=== PATIENT | male | born 1970 | race Caucasian/White ===

== ENCOUNTER → 2017-01-26 06:35 | Day surgery (SDC) | payer OTHER ==
[~2017-01-26 06:35] MED LIST: Acetaminophen TAB* 325 MG PO PRN; Buffered Lidocaine 1% SYRIN* 3 ML/SYR SYRINGE INTRADERM ONE; Bupivacaine 0.25% SDV* 30 ML ONE; Dexamethasone IV* 4 MG/ML 1 ML (4 MG) IV SLOW PU ONE; Dexamethasone IV* 4 MG/ML 1 ML (4 MG) ONE; Famotidine IV* 10 MG/ML 2 ML (20 mg) IV ONE; Famotidine IV* 10 MG/ML 2 ML (20 mg) ONE; Ketorolac INJ* 30 MG/ML 1 ML VIAL IV PRN; Lidocaine 2% PF* 5 ML VIAL ONE; Ondansetron INJ* 2 MG/ML VIAL IV PRN; PROCHLORPERAZINE INJ 5 MG/ML 2 ML VIAL IV PRN; Propofol* 10 MG/ML 20 ML BTL IV PUSH ONE
[2017-01-26 08:42] VITALS: BP 116/67
--- NOTE | 2017-01-27 00:57 | OP ---
DATE OF OPERATION: 01/26/17 [facility] DATE OF : 66 SURGEON: Jae Barth MD BATCHING OPERATOR: JON Lowry ANESTHESIOLOGIST: Dr. Rosalba Vidal ANESTHESIA: Local MAC. PRE-OP DIAGNOSIS: Right carpal tunnel syndrome. POST-OP DIAGNOSIS: Right carpal tunnel syndrome. OPERATIVE PROCEDURE: Right open carpal tunnel release. INDICATIONS: Rafael has had progressive right carpal tunnel syndrome now over a couple of years. He has had injections done up in [place]. He was referred to me after failing to provide adequate relief. He has also tried some night bracing. He gets quite a bit of nighttime symptoms. We talked about risks and benefits. ESTIMATED BLOOD LOSS: 5 mL. COMPLICATIONS: None. FINDINGS: As expected. DESCRIPTION OF PROCEDURE: Rafael was seen in the preoperative holding area and the correct side, site, and procedure were identified. He was taken back to the operating room, where he got some anesthesia and then I infiltrated the operative area with 0.25% Marcaine. We then prepped and draped the arm in the usual fashion and a time-out was performed. A standard longitudinal 2 to 3 cm incision was made using the anatomic landmarks for a carpal tunnel release. Dissection was carried down through the skin, subcutaneous tissue, and palmar fascia. The transverse carpal ligament was identified. It was released just off the radial aspect of the hook of the hamate. I used the tenotomy scissors to complete the release distally and proximally. Proximally, I did retract the skin and the subcutaneous tissue superficially and ulnarly to expose the proximal transverse carpal ligament and distal antebrachial fascia, and this was released under direct visualization with the tenotomy scissors. I checked for release proximally and distally and there was absolutely no compression on the nerve. The nerve was intact. The superficial palmar arch was seen. When I was satisfied with the decompression, I went ahead and irrigated the wound and closed the skin with some 4-0 nylon suture. He was then taken to the recovery room in stable condition. The arm was exsanguinated and tourniquet was inflated prior to making a skin incision to 250 mmHg. Tourniquet was deflated after the dressings were applied. The hand pinked up immediately. [id number]/[facility] #: [id number] [facility]
== END | disposition home or self-care (01) ==
LOC: OREAST 06:35
PROVIDERS: ATTEND Orthopaedic Surgery Hand Surgery
DX: G56.01 Carpal tunnel syndrome, right upper limb (principal); Z87.891 Personal history of nicotine dependence; Z87.898 Personal history of other specified conditions; F11.21 Opioid dependence, in remission
CPT/HCPCS: J1100; J2704

== ENCOUNTER 2017-02-12 12:04 | Emergency (ER) | payer OTHER ==
[2017-02-12 14:30] VITALS: BP 133/93
--- NOTE | 2017-02-12 14:52 | UC ---
Hand/Wrist HPI - HPI Summary HPI Summary: Had R carpal tunnel release 01/26/[address] Barth. Saw surgeon for f/u early last week, then 4 days ago develops severe pain in R 5th finger in the middle of the night and has had increasing swelling since then. Saw PCP who rx indomethacin and the med has helped with pain but swelling increases. Pt is concerned about infection. Denies redness, fevers, streaking, or drainage. - History Of Current Complaint Chief Complaint: UCUpperExtremity Stated Complaint: HAND PAIN AND SWOLLEN Time Seen by Provider: 02/12/17 14:34 Hx Obtained From: Patient ?: No Onset/Duration: Gradual Onset, Lasting Days Severity Initially: Moderate Severity Currently: Mild Character Of Pain: Sharp - when it shoots in R 5th finger, not currently, Dull Aggravating Factor(s): Movement Alleviating: Nothing Associated Signs And Symptoms: Positive: Swelling. Negative: Redness, Bruising , Numbness/Tingling - Allergies/Home Medications Allergies/Adverse Reactions: Allergies Allergy/AdvReac Type Severity Reaction Status Date / Time No Known Allergies Allergy Verified 02/12/17 14:30 Home Medications: Home Medications Indomethacin CAP* [Indocin CAP*] 50 mg PO Q8HR 02/12/17 [History Confirmed 02/12] PMH/Surg Hx/FS Hx/Imm Hx Endocrine History Of: Denies: Diabetes, Thyroid Disease Cardiovascular History Of: Denies: Cardiac Disorders, Hypertension Respiratory History Of: Denies: COPD, Asthma GI/ History Of: Denies: Ulcer Psychological History Of: Reports: Anxiety - no med - Surgical History Surgical History: Yes Surgery Procedure, Year, and Place: R carpel tunnel - Family History Known Family History: Negative: Blood Disorder - Social History 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 Alcohol Use: None Substance Use Type: Other Substance Use Comment - Amount & Last Used: ON SUBOXONE for opiate abuse Smoking Status (MU): Heavy Every Day Tobacco Smoker Type: Cigarettes Amount Used/How Often: 1/2 ppd Length of Time of Smoking/Using Tobacco: since age 16 Have You Smoked in the Last Year: Yes When Did the Patient Quit Smoking/Using Tobacco: 3RD WEEK SEP 2015 Household Exposure Type: Cigarettes Review of Systems Constitutional: Negative Skin: Other - healing surgical wound Eyes: Negative ENT: Negative Respiratory: Negative Cardiovascular: Negative Gastrointestinal: Negative Genitourinary: Negative Motor: Negative Neurovascular: Negative Musculoskeletal: Other: - swelling R hand Neurological: Negative Psychological: Negative All Other Systems Reviewed And Are Negative: Yes Physical Exam Triage Information Reviewed: Yes Appearance: Well-Appearing, No Pain Distress, Well-Nourished Vital Signs: Initial Vital Signs Temp 97 F 02/12/17 14:22 Pulse 65 02/12/17 14:22 Resp 14 02/12/17 14:22 BP 133/93 02/12/17 14:22 Pulse Ox 100 02/12/17 14:22 Vital Signs Reviewed: Yes Eye Exam: Normal Eyes: Positive: Conjunctiva Clear ENT Exam: Normal ENT: Positive: Normal ENT inspection, Hearing grossly normal, Pharynx normal, TMs normal Dental Exam: Normal Neck exam: Normal Neck: Positive: Supple, Nontender, No Lymphadenopathy Respiratory Exam: Normal Respiratory: Positive: Chest non-tender, Lungs clear, Normal breath sounds, No respiratory distress, No accessory muscle use Cardiovascular Exam: Normal Cardiovascular: Positive: RRR, No Murmur Musculoskeletal Exam: Other - mild swelling R hand Musculoskeletal: Positive: Strength Limited @ - R hand ice seller, thumb opposition Neurological Exam: Normal Neurological: Positive: Alert Psychological Exam: Normal Skin Exam: Other - healing surgical wound R palm Hand/Wrist Course/Dx - Differential Dx/Diagnosis Provider Diagnoses: R hand swelling secondary to surgery Discharge - Discharge Plan Condition: Stable Disposition: HOME Patient Education Materials: Paresthesia (ED) Referrals: Alli Molina MD [Primary Care Provider] - Jae Barth MD [Medical Doctor] - 2 Days Additional Instructions: As we discussed, I do not see any concerning signs of infection at this time, but your swelling and pain should be evaluated by your surgeon as soon as possible. I believe the pain in your 5th finger is due to the swelling in your hand pushing on that nerve. Keep the hand wrapped and elevated as much as possible between now and your follow-up appointment with the surgeon. You can continue to take the indomethacin as needed for pain.
== END 2017-02-12 14:52 | disposition home or self-care (01) ==
LOC: UCEAST 12:04
DX: G56.00 Carpal tunnel syndrome, unspecified upper limb (principal); R60.0 Localized edema; Z87.891 Personal history of nicotine dependence
CPT/HCPCS: 99211; G0463

== ENCOUNTER 2018-12-28 15:29 | Emergency (ER) | payer OTHER ==
--- OUTSIDE RECORDS SUMMARY | 2018-12-28 15:34 | XMS REPORT | Continuity of Care Document ---
:1970 External Reference #:[id number] Author Name Alli Molina M.D. Address [address] [facility] [address] [place] [address] Care Team Providers Name Role Phone HCP given Primary Care Physician Unavailable Payers Date Identification Numbers Payment Provider Subscriber Expires: 2016 Policy Number: [id number] Medicaid [employer] Name: active medicaid [address] [facility] PayID: [id number] [place] [address] Effective: 2016 Policy Number: [id number] [facility] Rafael Green PayID: [id number] [address] [place] [address] Advance Directives Description No Information Available Problems Date Description Provider Status Onset: 02/03/2015 Opioid dependence Alli Molina M.D. Active Onset: 02/03/2015 Tobacco user Alli Molina M.D. Active Onset: 02/03/2015 Carpal tunnel syndrome Alli Molina M.D. Active Onset: 06/24/2015 Opioid dependence, uncomplicated Alli Molina M.D. 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 He was getting Rx for 3 months and when he no longer got Rxs he started buying it off the street "then everything took off from there". Eventually started using heroin (snorting; never injected) and other Rx pain pills w/o a Rx. His drug of choice was heroin, easily go through 10 bags/day, or Oxycontin 40mg and would easily use 6/day. Was initially on suboxone for ~20 days back in 2009 while he was a resident at [facility] but came off of it b/o he just didn't think he needed it. After leaving [facility] residential facility in 2009 he did ok for a while, then started thinking he could "use safely", started using again but eventually got right back to where he was. He ended up seeking assistance again ~2yrs after leaving [facility], part of a [facility] based work therapy program through [facility] in [place], a residential program for 6 months, then ~6mo after leaving there he started using again. He then sought care at [facility] of his own free will, started October 2014. No current legal issues. (He initially went to [facility] in 2009 b/o a parole violation). Age 1st [place] 15 Years Old # [facility] Lifetime STD's No STD History Allergies, Adverse Reactions, Alerts Description No Known Drug Allergies Medications Medication Date Status Form Strength Qnty SIG Indications Ordering Provider Nicotine 06/18/ Active prn Unknown Inhaler 2017 Melatonin 08/22/ Active Capsules 10mg 1-2 by mouth Unknown 2015 every night to help with sleep Suboxone 11/05/ Active Film 8-2mg 30uni 1 by mouth F11.20 Jesse, 2014 ts every Alli, morning; rx M.D. due 12/31/18 prescriber# [id number] Indomethacin 02/10/ Hx Capsules 25mg 37cap 2 po q6h for M79.641 Jesse , 2016 - s 2 days then 2 Alli, 02/17/ po q8h for 2 M.D. 2017 days then 1 po q8h for 3 days; take w/ food Nicotine 11/08/ Hx Lozenges 4mg 168un use as F17.213 Silcoff, Polacrilex 2015 - its directed; 1 Alli, 06/18/ lozenge q1-2h M.D. 2017 while awake x6wks then q2-4hrs x3wks then q4-8h x3wks then d/c Chantix 07/25/ Hx Tablets 1mg 60tab 1/2 pill once F17.213 Silcoff, 2015 s daily for 3 Alli, 08/22/ then 10/17.D2015 pill twice daily for 4 days then 1 pill twice daily; for smoking cessation Chantix 03/29/ Hx Tablets 1mg 30tab 1/2 pill F17.210 Jesse, 2015 s twice daily Alli, to help with M.D. 2015 quitting smoking Strattera 03/28/ Hx Capsules 40mg 3caps 1 by mouth R41.840 Jesse, 2015 - every morning Alli, for 3 days M.D. 2015 then switch to the 80mg strength Strattera 03/28/ Hx Capsules 80mg 30cap Take One R41.840 Jesse, 2015 s Capsule By Alli, 05/24/ Mouth Every M.D. 2015 Morning (Start After 3 Days On 40MG ) Gabapentin 02/25/ Hx Capsules 300mg 90cap 1 pill R45.4 Jesse, 2015 s tonight then Alli, pill twice M.D. 2015 daily for 1 day then 1 pill 3x/day; for anger/irritab ility Chantix 01/26/ Hx Tablets 1mg 30tab 1/2 pill once F17.210 Silcoff, 2015 - s daily; Alli, 03/29/ increase to M.D. 2015 1/2 pill 2x/day after 3 days if irritability still a problem Zolpidem 11/27/ Hx Tablets 5mg 15tab 1 tablet G47.00 Silcoff, Tartrate 2015 s nightly at Alli, 06/16/ bedtime as .D. 2016 needed for sleep Chantix 08/31/ Hx Tablets 1mg 60tab 1/2 pill once F17.210 Silcoff, 2014 s daily for 3 Alli, 11/27/ days then 1/2 M.D. 2016 pill twice daily for 4 days then 1 pill twice daily Wrist 02/03/ Hx 1unit use as G56.01 Silcoff, Immobilizer 2014 - s directedAlli, (Right) 10/27/ overnight M.D. 2015 (for carpal tunnel syndrome) Chantix 12/05/ Hx Tablets 1mg 1 pill twice 305.1 Unknown 2014 - daily to help 04/28/ quit smoking 2014 Nicoderm CQ 02/02/ Hx Patches 14mg/24HR 30uni 1 patch qd Jesse, 2009 - 24HR ts Alli, M.DPatience 2009 Prilosec OTC 12/15/ Hx Tablets DR 20mg 30tab 1 po once Silcoff, 2009 - daily Alli, M.D. 2014 Chantix 11/10/ Hx Tablets 1mg 1pkt take as Silcoff, Continuing 2009 - kayleigh Carson, Month Boy M.DPatience 2009 Immunizations CPT Code Status Date Vaccine Lot # [id number] Given 06/19/2018 Influenza Virus Vaccine, Quadrivalent, Split, [id number] Preservative Free 29779 Given 06/16/2017 Influenza Virus Vaccine, Quadrivalent, Split, [id number] Preservative Free 73552 Given 08/31/2015 Influenza Virus Vaccine, Quadrivalent, Split, [id number] Preservative Free Vital Signs Date Vital Result Comment 12/18/2018 4:55pm BP Systolic 142 mmHg BP Diastolic 84 mmHg BP Systolic Recheck 154 mmHg R arm sitting BP Diastolic Recheck 84 mmHg R arm sitting Weight 180.00 lb with work boots 10/17/2018 4:32pm BP Systolic 134 mmHg BP Diastolic 80 mmHg Weight 176.00 lb w/work boots 08/20/2018 4:30pm BP Systolic 126 mmHg BP Diastolic 80 mmHg Height 71.50 inches 5'11.50" Weight 180.00 lb BMI (Body Mass Index) 24.8 kg/m2 06/19/2018 4:39pm BP Systolic 135 mmHg w/automatic cuff rt arm BP Diastolic 76 mmHg w/automatic cuff rt arm Heart Rate 63 /min Weight 172.00 lb with sneakers 04/23/2018 5:52pm BP Systolic 126 mmHg per pt BP Diastolic 83 mmHg per pt 04/16/2018 4:43pm BP Systolic 140 mmHg BP Diastolic 84 mmHg BP Systolic Recheck 156 mmHg R arm sitting BP Diastolic Recheck 100 mmHg R arm sitting Weight 170.00 lb 02/21/2018 4:24pm BP Systolic 126 mmHg BP Diastolic 72 mmHg Height 70.75 inches 5'10.75" Weight 173.00 lb BMI (Body Mass Index) 24.3 kg/m2 12/22/2017 4:16pm BP Systolic 126 mmHg BP Diastolic 74 mmHg Weight 186.00 lb 10/23/2017 5:25pm BP Systolic 126 mmHg BP Diastolic 80 mmHg Weight 185.00 lb w/workboots 08/22/2017 4:32pm BP Systolic 120 mmHg BP Diastolic 70 mmHg Weight 182.00 lb w/workboots 06/16/2017 5:16pm BP Systolic 114 mmHg BP Diastolic 78 mmHg Height 72 inches 6'0" w/sneakers Weight 178.00 lb w/sneakers BMI (Body Mass Index) 24.1 kg/m2 04/14/2017 5:18pm BP Systolic 100 mmHg BP Diastolic 68 mmHg Weight 170.00 lb 02/10/2017 4:31pm BP Systolic 114 mmHg BP Diastolic 68 mmHg Weight 171.00 lb 12/13/2016 4:35pm BP Systolic 134 mmHg BP Diastolic 80 mmHg Weight 171.00 lb 10/25/2016 4:09pm BP Systolic 114 mmHg BP Diastolic 68 mmHg Height 72 inches 6'0" w/workboots Weight 177.00 lb w/workboots BMI (Body Mass Index) 24.0 kg/m2 09/16/2016 5:05pm BP Systolic 110 mmHg BP Diastolic 80 mmHg Weight 179.00 lb with shoes 08/23/2016 5:33pm BP Systolic 98 mmHg BP Diastolic 66 mmHg Weight 180.00 lb 07/25/2016 5:00pm BP Systolic 118 mmHg BP Diastolic 70 mmHg Weight 180.00 lb w/workboots 06/24/2016 5:14pm BP Systolic 118 mmHg BP Diastolic 80 mmHg Weight 182.00 lb with sneakers 05/24/2016 5:26pm BP Systolic 102 mmHg BP Diastolic 66 mmHg 04/26/2016 5:05pm BP Systolic 110 mmHg BP Diastolic 70 mmHg Weight 184.00 lb w/shoes 03/28/2016 4:53pm BP Systolic 122 mmHg BP Diastolic 78 mmHg Weight 187.00 lb with sneakers 02/26/2016 3:22pm BP Systolic 122 mmHg BP Diastolic 70 mmHg Height 72 inches 6'0" w/shoes Weight 184.00 lb w/shoes BMI (Body Mass Index) 25.0 kg/m2 01/27/2016 4:55pm BP Systolic 136 mmHg BP Diastolic 82 mmHg Weight 193.00 lb w/workboots 12/28/2015 4:52pm BP Systolic 130 mmHg BP Diastolic 80 mmHg Weight 198.00 lb w/workboots 11/27/2015 4:12pm BP Systolic 124 mmHg BP Diastolic 80 mmHg Weight 191.00 lb w/shoes 10/28/2015 5:14pm BP Systolic 118 mmHg BP Diastolic 78 mmHg 09/30/2015 4:42pm BP Systolic 122 mmHg BP Diastolic 78 mmHg Weight 189.00 lb with sneakers 08/31/2015 2:35pm BP Systolic 130 mmHg BP Diastolic 80 mmHg Height 71.5 inches 5'11.50" Weight 176.00 lb BMI (Body Mass Index) 24.2 kg/m2 07/29/2015 5:14pm BP Systolic 120 mmHg BP Diastolic 70 mmHg Weight 190.00 lb with sneakers 06/24/2015 4:35pm BP Systolic 138 mmHg BP Diastolic 84 mmHg 06/24/2015 4:32pm Weight 183.00 lb 05/27/2015 4:49pm BP Systolic 138 mmHg BP Diastolic 70 mmHg 04/28/2015 5:21pm BP Systolic 130 mmHg BP Diastolic 80 mmHg Weight 183.00 lb with sneakers 03/30/2015 8:52am BP Systolic 128 mmHg BP Diastolic 78 mmHg BP Systolic Recheck 158 mmHg R arm sitting BP Diastolic Recheck 90 mmHg R arm sitting Weight 180.00 lb shoes on 02/03/2015 3:36pm BP Systolic 148 mmHg BP Diastolic 70 mmHg Height 71.5 inches 5'11.50" Weight 181.00 lb BMI (Body Mass Index) 24.9 kg/m2 Results Test Date Facility Test Result H/L Range Note Laboratory test 06/19/2018 In House Occult Blood, F I Negative finding T Urine Drug Screen 12/22/2017 In House Ua Cocaine - Inhouse Ua Opiates - Ua Amphetamines - Urine Methanphetamines - Urine Benzodiazepines QN [place] - Urine Oxycodone QL - Urine Drug Screen Inhouse 04/26/2017 In House Ua Cocaine - Ua Opiates - Ua Amphetamines - Urine Methanphetamines - Urine Benzodiazepines QN [place] - Urine Oxycodone QL - Urine Drug Screen Inhouse 02/26/2016 In House Ua Cocaine - Ua Opiates - Ua Amphetamines - Urine Methanphetamines - Urine Benzodiazepines QN [place] - Urine Oxycodone QL - Urine Drug Screen Inhouse 09/30/2015 In House Ua Cocaine NEGATIVE Ua Opiates NEGATIVE Ua Amphetamines NEGATIVE Urine Methanphetamines NEGATIVE Urine Benzodiazepines QN [place] NEGATIVE Urine Oxycodone QL NEGATIVE Urine Drug Screen Inhouse 07/29/2015 In House Ua Cocaine - Ua Opiates - Ua Amphetamines - Urine Methanphetamines - Urine Benzodiazepines QN [place] - Urine Oxycodone QL - Urine Drug Screen Inhouse 07/15/2015 In House Ua Cocaine - Ua Opiates - Ua Amphetamines - Urine Methanphetamines - Urine Benzodiazepines QN [place] - Urine Oxycodone QL - Urine Drug Screen Inhouse 06/24/2015 In House Ua Cocaine - Ua Opiates - Ua Amphetamines - Urine Methanphetamines - Urine Benzodiazepines QN [place] - Urine Oxycodone QL - Laboratory 03/02/2015 [facility] Hepatitis C Nonreactive N Nonreactive test finding [phone] Antibody Lipid Profile 03/02/2015 [facility] Triglycerides 61 mg/dL N 1 (Trig/Chol/HDL [phone] ) Cholesterol 205 mg/dL N 2 HDL Cholesterol 68.7 mg/dL N 3 LDL Cholesterol 124 mg/dL N 4 Laboratory test 03/02/2015 [facility] TSH (Thyroid 1.04 ?IU/mL N 0.34 -5.60 finding [phone] Stim Horm) Glucose 89 mg/dL N 70-100 1 Desirable <150 Borderline high 150-199 High 200-499 Very High >500 2 Desirable <200 Borderline high 200-239 High >239 3 Low <40 Desirable: 40-60 High: >60 4 Desirable: <100 mg/dL Near Optimal: 100-129 mg/dL Borderline High: 130-159 mg/dL High: 160-189 mg/dL Very High: >189 mg/dL Procedures Date Code Description Status 06/19/2018 72339 Brief Emotional/Behav Assessment W/ Scoring Doc Per Completed Standard Inst 04/16/2018 71585 Electrocardiogram Complete Completed Encounters Type Date Location Provider Dx Diagnosis Office Visit 12/18/2018 Main Office Alli Molina, F11.20 Opioid dependence, 4:30p Cabrera uncomplicated F17.210 Nicotine dependence, cigarettes, uncomplicated R03.0 Elevated blood-pressure reading, w/o diagnosis of htn R45.4 Irritability and anger Z71.51 Drug abuse counseling and surveillance of drug abuser Office Visit 10/17/2018 4:15p Main Office Fátima Molina.Barb Opioid Alli bowden M.D. uncomplicated Z71.51 Drug abuse counseling and surveillance of drug abuser Z23 Encounter for immunization Office Visit 08/20/2018 4:30p Main Office Reena Molina Opioid dependenceAlli M.D. uncomplicated Z71.51 Drug abuse counseling and surveillance of drug abuser F17.210 Nicotine dependence, cigarettes, uncomplicated Office Visit 06/19/2018 4:30p Main Office Fátima Molina.Barb Opioid dependenceAlli M.D. uncomplicated Z71.51 Drug abuse counseling and surveillance of drug abuser R00.2 Palpitations R03.0 Elevated blood-pressure reading, w/o diagnosis of htn Z12.11 Encounter for screening for malignant neoplasm of colon Z23 Encounter for immunization Z41.8 Encntr for oth proc for purpose oth [facility] Z13.89 Encounter for screening for other disorder Office Visit 04/16/2018 4:30p Main Office Fátima Molina.Barb Opioid Alli bowden M.D. uncomplicated Z71.51 Drug abuse counseling and surveillance of drug abuser F17.210 Nicotine dependence, cigarettes, uncomplicated R00.2 Palpitations R03.0 Elevated blood-pressure reading, w/o diagnosis of htn Office Visit 02/21/2018 4:15p Main Office Fátima Molina.Barb Opioid dependenceAlli M.D. uncomplicated Z71.51 Drug abuse counseling and surveillance of drug abuser F17.210 Nicotine dependence, cigarettes, uncomplicated Office Visit 12/22/2017 4:15p Main Office Reena Molina Opioid dependenceAlli M.D. uncomplicated Z71.51 Drug abuse counseling and surveillance of drug abuser F17.210 Nicotine dependence, cigarettes, uncomplicated Office Visit 10/23/2017 4:30p Main Office Reena Molina Opioid dependenceAlli M.D. uncomplicated Z71.51 Drug abuse counseling and surveillance of drug abuser F17.213 Nicotine dependence, cigarettes, with withdrawal Office Visit 08/22/2017 4:30p Main Office Reena Molina Opioid dependenceAlli M.D. uncomplicated Z71.[place] Drug abuse counseling and surveillance of drug abuser Office Visit 06/16/2017 4:45p Main Office Reena Molina Opioid dependenceAlli M.D. uncomplicated Z71.[place] Drug abuse counseling and surveillance of drug abuser G47.00 Insomnia, unspecified F17.213 Nicotine dependence, cigarettes, with withdrawal Z23 Encounter for immunization Z41.8 Encntr for oth proc for purpose oth [facility] Office Visit 04/14/2017 4:45p Main Office Reena Molina Opioid dependenceAlli M.D. uncomplicated Z71.Casey Drug abuse counseling and surveillance of drug abuser Office Visit 02/10/2017 4:00p Main Office Reena Molina Opioid dependenceAlli M.D. uncomplicated Z71.Casey Drug abuse counseling and surveillance of drug abuser G56.01 Carpal tunnel syndrome, right upper limb M79.641 Pain in right hand M79.644 Pain in right finger(s) Office Visit 12/13/2016 4:00p Main Office Reena Molina Opioid dependenceAlli M.D. uncomplicated Z71.Casey Drug abuse counseling and surveillance of drug abuser G47.00 Insomnia, unspecified K08.89 Other specified disorders of teeth and supporting structures Office Visit 10/25/2016 3:30p Main Office Reena Molina Opioid dependenceAlli M.D. uncomplicated Z71.Casey Drug abuse counseling and surveillance of drug abuser F17.213 Nicotine dependence, cigarettes, with withdrawal G47.00 Insomnia, unspecified Office Visit 09/16/2016 4:45p Main Office Reena Molina Opioid dependenceAlli M.D. uncomplicated Z71.Casey Drug abuse counseling and surveillance of drug abuser F17.213 Nicotine dependence, cigarettes, with withdrawal G47.00 Insomnia, unspecified Office Visit 08/23/2016 4:45p Main Office Reena Molina Opioid dependenceAlli M.D. uncomplicated F17.213 Nicotine dependence, cigarettes, with withdrawal Z71.51 Drug abuse counseling and surveillance of drug abuser Office Visit 07/25/2016 4:45p Main Office Jesse F11.20 Opioid dependence, Cabrera Carson uncomplicated F17.213 Nicotine dependence, cigarettes, with withdrawal G47.00 Insomnia, unspecified G56.01 Carpal tunnel syndrome, right upper limb Office Visit 06/24/2016 4:45p Main Office Jesse F11.20 Opioid dependence, Cabrera Carson uncomplicated R41.840 Attention and concentration deficit F17.213 Nicotine dependence, cigarettes, with withdrawal Office Visit 05/24/2016 4:45p Main Office Jesse R41.840 Attention and Cabrera Carson concentration deficit F11.20 Opioid dependence, uncomplicated F17.213 Nicotine dependence, cigarettes, with withdrawal Office Visit 04/26/2016 4:15p Main Office Jesse F11.20 Opioid dependence, Cabrera Carson uncomplicated R41.840 Attention and concentration deficit R45.4 Irritability and anger Z79.899 Other [facility] (current) drug therapy Office Visit 03/28/2016 4:45p Main Office Jesse F11.20 Opioid dependence, Cabrera Carson uncomplicated F17.213 Nicotine dependence, cigarettes, with withdrawal R41.840 Attention and concentration deficit Office Visit 02/26/2016 2:45p Main Office Jesse F11.20 Opioid dependence, Cabrera Carosn uncomplicated F17.213 Nicotine dependence, cigarettes, with withdrawal Office Visit 01/27/2016 4:30p Main Office Jesse F11.20 Opioid dependence, Cabrera Carson uncomplicated F17.213 Nicotine dependence, cigarettes, with withdrawal R45.4 Irritability and anger Z71.51 Drug abuse counseling and surveillance of drug abuser Office Visit 12/28/2015 4:15p Main Office Jesse F11.20 Opioid dependence, Cabrera Carson uncomplicated F17.210 Nicotine dependence, cigarettes, uncomplicated G47.00 Insomnia, unspecified Office Visit 11/27/2015 4:15p Main Office Jesse F11.20 Opioid dependence, Cabrera Carson uncomplicated F17.210 Nicotine dependence, cigarettes, uncomplicated G47.00 Insomnia, unspecified G56.01 Carpal tunnel syndrome, right upper limb M77.01 Medial epicondylitis, right elbow M77.02 Medial epicondylitis, left elbow Office Visit 10/28/2015 4:45p Main Office Becky Molina1.20 Opioid dependenceAlli M.D. uncomplicated G56.01 Carpal tunnel syndrome, right upper limb F17.210 Nicotine dependence, cigarettes, uncomplicated G47.00 Insomnia, unspecified Office Visit 09/30/2015 4:45p Main Office Jesse F11.20 Opioid dependenceAlli M.D. uncomplicated G56.01 Carpal tunnel syndrome, right upper limb F17.210 Nicotine dependence, cigarettes, uncomplicated Office Visit 08/31/2015 2:30p Main Office Jesse F11.20 Opioid dependence, Cabrera Carson uncomplicated G56.01 Carpal tunnel syndrome, right upper limb F17.210 Nicotine dependence, cigarettes, uncomplicated Z71.89 Other specified counseling Z23 Encounter for immunization Z41.8 Encntr for oth proc for purpose oth [facility] Office Visit 07/29/2015 4:45p Main Office Jesse F11.20 Opioid dependenceAlli M.D. uncomplicated G56.01 Carpal tunnel syndrome, right upper limb F17.210 Nicotine dependence, cigarettes, uncomplicated Z51.81 Encounter for therapeutic drug level monitoring Office Visit 06/24/2015 4:30p Main Office Jesse F11.20 Opioid dependenceAlli M.D. uncomplicated F17.210 Nicotine dependence, cigarettes, uncomplicated G56.01 Carpal tunnel syndrome, right upper limb Z71.51 Drug abuse counseling and surveillance of drug abuser Office Visit 05/27/2015 4:30p Main Office Alli Molina 304.00 Drug Dependence M.D. Opioid Type Unspec 354.0 Carpal Tunnel Syndrome 305.1 Tobacco Use Disorder Office Visit 04/28/2015 4:45p Main Office Alli Molina 304.00 Drug Dependence M.D. Opioid Type Unspec 354.0 Carpal Tunnel Syndrome 305.1 Tobacco Use Disorder 796.2 Blood Pressure Reading Elevated W/O Hypertension Office Visit 03/30/2015 8:55a Main Office Alli Molina 304.00 Drug Dependence M.D. Opioid Type Unspec 305.1 Tobacco Use Disorder 354.0 Carpal Tunnel Syndrome 796.2 Blood Pressure Reading Elevated W/O Hypertension 305.03 Alcohol Abuse In Remission Office Visit 02/03/2015 3:30p Main Office Alli Molina, 304.00 Drug Dependence M.D. Opioid Type Unspec 305.1 Tobacco Use Disorder 796.2 Blood Pressure Reading Elevated W/O Hypertension 354.0 Carpal Tunnel Syndrome V77.91 Screening For Lipoid Disorders V75.9 Screening Examination Infectious Disease Unspec 238.2 Neoplasm Uncertain Skin Office Visit 12/15/2009 4:59p [facility] [place], 530.81 [facility] 305.1 Tobacco Use Disorder Plan of Treatment Future Appointment(s):02/18/2019 4:30 pm - Alli Molina M.D. at [facility]12/18/2018 - Alli Molina M.D.F11.20 Opioid dependence, uncomplicatedFollow up:RTO 2 fuzripW56.210 Nicotine dependence, cigarettes, uncomplicatedComments:Congratulated on his efforts. Encouraged continued abstinence from cigarettes.R03.0 Elevated blood-pressure reading, without diagnosis of hypertComments:His BP is a little high today but he notes it has been a stressful day, and also notes hge checks BPout of office and it is typicaly in the 120-125 range. He checked daily for ~1mo then less frequently. Will just continue to observe for now.R45.4 Irritability and angerComments: Encouraged counseling. If not doing adequately with this then we should consider trial of meds.Follow up:Some places to consider going for counseling: [facility] and surveillance of drug abuser
[2018-12-28 15:39] VITALS: BP 155/85
--- NOTE | 2018-12-28 16:30 | UC ---
[facility] HPI - HPI Summary HPI Summary: Pt c/o worsening tooth pain in left lower molar that began 3 weeks ago. Pt also c/o swelling along left lower jaw. Denies injury or recent dental work. Pt is scheduled to see dentist in 2 weeks. - History of Current Complaint Chief Complaint: UCDentalProblem Stated Complaint: DENTAL COMPLAINT Time Seen by Provider: 12/28/18 16:00 Hx Obtained From: Patient Onset/Duration: Gradual Onset, Lasting Weeks, Still Present, Worse Since - onset Severity: Moderate Pain Intensity: 7 Aggravating Factor(s): Chewing Related History: Swelling - Allergies/Home Medications Allergies/Adverse Reactions: Allergies Allergy/AdvReac Type Severity Reaction Status Date / Time No Known Allergies Allergy Verified 12/28/18 15:38 Home Medications: Home Medications Melatonin 10 mg PO DAILY 12/28/18 [History Confirmed 12/28/18] PMH/Surg Hx/FS Hx/Imm Hx Previously Healthy: Yes - Surgical History Surgical History: Yes Surgery Procedure, Year, and Place: R carpel tunnel - Family History Known Family History: Negative: Hypertension, Blood Disorder - Social History Occupation: Employed Full-time Lives: With Family Alcohol Use: None Substance Use Type: None Substance Use Comment - Amount & Last Used: ON SUBOXONE for opiate abuse Smoking Status (MU): Light Every Day Tobacco Smoker Type: Cigarettes Amount Used/How Often: 5-6 sig/day Length of Time of Smoking/Using Tobacco: since age 16 Have You Smoked in the Last Year: Yes When Did the Patient Quit Smoking/Using Tobacco: 3RD WEEK SEP 2015 Household Exposure Type: Cigarettes Review of Systems All Other Systems Reviewed And Are Negative: Yes Constitutional: Positive: Negative Skin: Positive: Negative Eyes: Positive: Negative ENT: Positive: Dental Pain Respiratory: Positive: Negative Cardiovascular: Positive: Negative Gastrointestinal: Positive: Negative Genitourinary: Positive: Negative Motor: Positive: Negative Neurovascular: Positive: Negative Musculoskeletal: Positive: Negative Neurological: Positive: Negative Psychological: Positive: Negative Is Patient Immunocompromised?: No Physical Exam Triage Information Reviewed: Yes Appearance: Pain Distress Vital Signs: Initial Vital Signs Temp 98.6 F 12/28/18 15:31 Pulse 76 12/28/18 15:31 Resp 16 12/28/18 15:31 BP 155/85 12/28/18 15:31 Pulse Ox 95 12/28/18 15:31 Vital Signs Reviewed: Yes Eye Exam: Normal ENT Exam: Normal Dental: Positive: Percussion Tenderness @ - left lower molar, second from back, Abscess @ - left lower jaw Neck exam: Normal Respiratory Exam: Normal Cardiovascular Exam: Normal Musculoskeletal Exam: Normal Neurological Exam: Normal Psychological Exam: Normal Skin Exam: Normal Dental Complaint Course/Dx - Differential Dx/Diagnosis Differential Diagnosis/Dx: Dental Abscess, Dental Caries Provider Diagnosis: Dental abscess Discharge - Sign-Out/Discharge Documenting (check all that apply): Patient Departure All imaging exams completed and their final reports reviewed: No Studies - Discharge Plan Condition: Stable Disposition: HOME Prescriptions: Amoxicillin PO (*) [Amoxicillin 500 MG CAP*] 500 mg PO Q8H #30 cap Lidocaine 2% VISCOUS* [Xylocaine 2% Viscous*] 15 ml SWISH SPIT Q4H PRN #1 btl PRN Reason: Pain predniSONE TAB* [Deltasone 10 MG TAB*] 30 mg PO DAILY #12 tab Patient Education Materials: Dental Abscess (ED) Referrals: Alli Molina MD [Primary Care Provider] - Additional Instructions: Please follow with your dental care provider as scheduled. If your symptoms worsen please seek as soon as possible. - Billing Disposition and Condition Condition: STABLE Disposition: Home
== END 2018-12-28 16:43 | disposition home or self-care (01) ==
LOC: UCEAST 15:29
DX: K04.7 Periapical abscess without sinus (principal); F17.210 Nicotine dependence, cigarettes, uncomplicated
CPT/HCPCS: 99212; G0463

== ENCOUNTER 2019-08-07 16:07 | Emergency (ER) | payer OTHER ==
--- OUTSIDE RECORDS SUMMARY | 2019-08-07 16:13 | XMS REPORT | Continuity of Care Document ---
:1970 External Reference #:[id number] Author Name Alli Molina M.D. 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 Onset: 02/03/2015 Carpal tunnel syndrome Alli Molina M.D. Onset: 02/03/2015 Opioid dependence, uncomplicated Alli Molina M.D. 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 but came off of it b/o he just didn't think he needed it. After leaving [facility] residential facility in 2009 he did ok for a while, then started thinking he could "use safely", started using again but eventually got right back to where he was. He ended up seeking assistance again ~2yrs after leaving [facility] residential facility, part of a Gnosticist based work therapy program through [facility] in [place], a residential program for 6 months, then ~6mo after leaving there he started using again. He then sought care at [facility] of his own free will, started October 2014. No current legal issues. (He initially went to [facility] in 2009 b/o a parole violation). Allergies, Adverse Reactions, Alerts Description No Known Drug Allergies Medications Active Medications SIG Qnty Indications Ordering Date Provider PT For Low Back Pain please evaluate M54.5 Alli Molina, 07/24/2019 and treat, M.D. modalities as needed, instruct in hep Amphetamine-Dextroam take 1 capsule by 30caps F90.0 Alli Molina, 05/13 phet ER mouth every M.D. 20mg Caps ER morning for 24HR attention/concentr ation Nicotine Inhaler prn F17.210 Unknown 06/18/2018 Melatonin 1-2 by mouth every Unknown 08/22/2016 10mg night to help with Capsules sleep Suboxone 1 by mouth every 30units F11.20 Alli Molina, 11/05/2014 8-2mg Film morning; rx due M.D. 07/29/19 prescriber# [id number] History Medications Amphetamine-Dextroamphet take 1 capsule by mouth 30caps F90.0 Jesse, 05/2019 ER every morning as needed Alli, - 10mg Caps ER 24HR for M.D. 05/13/2019 attention/concentration Immunizations CPT Code Status Date Vaccine Lot # [id number] Given 06/19/2018 Influenza Virus Vaccine, Quadrivalent, Split, [id number] Preservative Free [id number] Given 06/16/2017 Influenza Virus Vaccine, Quadrivalent, Split, [id number] Preservative Free [id number] Given 08/31/2015 Influenza Virus Vaccine, Quadrivalent, Split, [id number] Preservative Free Vital Signs Date Vital Result Comment 07/24/2019 4:47pm BP Systolic 132 mmHg BP Diastolic 84 mmHg Weight 162.00 lb 05/24/2019 4:24pm BP Systolic 140 mmHg BP 160s w/ his cuff! BP Diastolic 82 mmHg BP 160s w/ his cuff! Weight 167.00 lb w/sneakers Results Description No Information Available Procedures Description No Information Available Medical Devices Description No Information Available Encounters Type Date Location Provider Dx Diagnosis Office Visit 05/24/2019 Main Office Alli Molina F11.20 Opioid dependence, 4:15p M.DPatience uncomplicated F90.0 Attn-defct hyperactivity disorder, predom inattentive type R45.4 Irritability and anger R03.0 Elevated blood-pressure reading, w/o diagnosis of htn Office Visit 04/22/2019 4:30p Main Office Jesse F11.20 Opioid dependence, [place] uncomplicated F17.210 Nicotine dependence, cigarettes, uncomplicated R03.0 Elevated blood-pressure reading, w/o diagnosis of htn R45.4 Irritability and anger F90.0 Attn-defct hyperactivity disorder, predom inattentive type Office Visit 02/18/2019 4:30p Main Office Jesse F11.20 Opioid kal, [place] uncomplicated F17.210 Nicotine dependence, cigarettes, uncomplicated R03.0 Elevated blood-pressure reading, w/o diagnosis of htn R45.4 Irritability and anger Assessments Date Code Description Provider 07/24/2019 F11.20 Opioid dependence, uncomplicated Alli Molina M.D. 07/24/2019 F90.0 Attention-deficit hyperactivity disorder, Alli Molina M.D. predominantly inat 07/24/2019 R45.4 Irritability and anger Alli Molina M.D. 07/24/2019 Z12.11 Encounter for screening for malignant Alli Molina M.D. neoplasm of colon 07/24/2019 M54.5 Low back pain Alli Molina M.D. 07/24/2019 D17.1 Benign lipomatous neoplasm of skin and Alli Molina M.D. subcutaneous tissue of trunk 05/24/2019 F11.20 Opioid dependence, uncomplicated Alli Molina M.D. 05/24/2019 F90.0 Attention-deficit hyperactivity disorder, Alli Molina M.D. predominantly inat 05/24/2019 R45.4 Irritability and anger Alli Molina M.D. 05/24/2019 R03.0 Elevated blood-pressure reading, without Alli Molina M.D. diagnosis of hypert 04/22/2019 F11.20 Opioid dependence, uncomplicated Alli Molina M.D. 04/22/2019 F17.210 Nicotine dependence, cigarettes, Alli Molina M.D. uncomplicated 04/22/2019 R03.0 Elevated blood-pressure reading, without Alli Molina M.D. diagnosis of hypert 04/22/2019 R45.4 Irritability and anger Alli Molina M.D. 04/22/2019 F90.0 Attention-deficit hyperactivity disorder, Alli Molina M.D. predominantly inat 02/18/2019 F11.20 Opioid dependence, uncomplicated Alli Molina M.D. 02/18/2019 F17.210 Nicotine dependence, cigarettes, Alli Molina M.D. uncomplicated 02/18/2019 R03.0 Elevated blood-pressure reading, without Alli Molina M.D. diagnosis of hypert 02/18/2019 R45.4 Irritability and anger Alli Molina M.D. Plan of Treatment 07/24/2019 - Alli Molina M.D.F11.20 Opioid dependence, uncomplicatedFollow up:RTO 2 mkufyzL85.0 Attention-deficit hyperactivity disorder, predominantly inatR45.4 Irritability and dbdrjY59.11 Encounter for screening for malignant neoplasm of colonComments:Counseled re colon screening options, incl pros and cons of FIT and colonoscopy. Pt declined colonoscopy. FIT was given.M54.5 Low back painNew Medication:PT For Low Back Pain - please evaluate and treat, modalities as needed, instruct in hepD17.1 Benign lipomatous neoplasm of skin and subcutaneous tissue of trunkComments:suspected lipoma upper back. Reassured. RTO prn if Sxs worsening Functional Status Description No Information Available Mental Status Description No Information Available Referrals Description No Information Available
[2019-08-07 16:16] VITALS: BP 139/90
--- NOTE | 2019-08-07 16:26 | UC ---
General HPI - HPI Summary HPI Summary: Patient is a 49yo male presenting with fatigue, intermittent body aches, chills , nausea, dizziness, decreased appetite, and general "feeling cloudy" x1 month. States symptoms have worsened within the past two weeks. Patient states he had Lyme disease almost 2 years ago and was treated. Notes he had an untreated tick bite on his right arm two months ago and believes maybe he has lyme again. Denies any rash appearing. Patient also notes 5lb weight loss in the last month. Denies fever and night sweats. Denies headaches. Denies any changes in BMs or urination. Denies URI symptoms. Denies SOB and difficulty breathing. Denies chest pain. - History of Current Complaint Chief Complaint: UCGeneralIllness Stated Complaint: TICK BITE Hx Obtained From: Patient Onset/Duration: Gradual Onset, Lasting Weeks Pain Intensity: 0 - Allergy/Home Medications Allergies/Adverse Reactions: Allergies Allergy/AdvReac Type Severity Reaction Status Date / Time No Known Allergies Allergy Verified 08/07/19 16:16 Home Medications: Home Medications Dextroamphetamine/Amphetamine [Adderall Xr 20 mg Capsule] 20 mg PO DAILY [History Confirmed 08/07/19] PMH/Surg Hx/FS Hx/Imm Hx - Surgical History Surgical History: Yes Surgery Procedure, Year, and Place: R carpel tunnel - Family History Known Family History: Negative: Hypertension, Blood Disorder - Social History Alcohol Use: None Substance Use Type: None Substance Use Comment - Amount & Last Used: ON SUBOXONE for opiate abuse Smoking Status (MU): Light Every Day Tobacco Smoker Type: Cigarettes Amount Used/How Often: 5-6 sig/day Length of Time of Smoking/Using Tobacco: since age 16 Have You Smoked in the Last Year: Yes When Did the Patient Quit Smoking/Using Tobacco: 3RD WEEK SEP 2015 Household Exposure Type: Cigarettes Review of Systems All Other Systems Reviewed And Are Negative: Yes Constitutional: Positive: Chills, Fatigue. Negative: Fever Skin: Positive: Negative. Negative: Rash Respiratory: Positive: Negative. Negative: Shortness Of Breath, Cough Cardiovascular: Positive: Negative. Negative: Palpitations, Chest Pain Gastrointestinal: Positive: Nausea. Negative: Abdominal Pain, Vomiting, Diarrhea Genitourinary: Positive: Negative Motor: Positive: Weakness Musculoskeletal: Positive: Arthralgia, Myalgia. Negative: Decreased ROM, Edema Neurological: Negative: Paresthesia, Numbness Physical Exam Triage Information Reviewed: Yes Appearance: Well-Appearing, No Pain Distress, Well-Nourished, Thin Vital Signs: Initial Vital Signs Temp 97.9 F 08/07/19 16:11 Pulse 73 08/07/19 16:11 Resp 16 08/07/19 16:11 BP 139/90 08/07/19 16:11 Pulse Ox 99 08/07/19 16:11 Eyes: Positive: Conjunctiva Clear ENT: Positive: Hearing grossly normal Neck exam: Normal Neck: Positive: Supple, Nontender, No Lymphadenopathy Respiratory Exam: Normal Respiratory: Positive: Lungs clear, Normal breath sounds, No respiratory distress. Negative: Crackles, Rhonchi, Stridor, Wheezing Cardiovascular Exam: Normal Cardiovascular: Positive: RRR Neurological: Positive: Alert Psychological: Positive: Age Appropriate Behavior Skin Exam: Normal Course/Dx - Course Course Of Treatment: Patient presenting with nonspecific symptoms. Discussed uncertainty of cause of symptoms with patient but offered blood work today and to follow up as soon as possible with PCP for further evaluation. Patient verbally consented to CBC w/ diff, CMP, TSH, and Lyme testing. Patient voiced understanding and agreed with the plan. Discussed the patient with Dr. Soriano who also agreed with the plan. - Diagnoses Provider Diagnosis: Fatigue, Vague bodily discomfort Discharge ED - Sign-Out/Discharge Documenting (check all that apply): Patient Departure All imaging exams completed and their final reports reviewed: No Studies - Discharge Plan Condition: Stable Disposition: HOME Referrals: Alli Molina MD [Primary Care Provider] - As Soon As Possible Additional Instructions: As discussed, it is unclear what is causing your symptoms. You had blood drawn for baseline blood work and Lyme disease today. You will be notified if your Lyme testing is positive. It is important that you follow up with your primary care physician as soon as possible for further evaluation of your symptoms and blood work. - Billing Disposition and Condition Condition: STABLE Disposition: Home
[2019-08-08 13:15] LABS: ABS Basophils 0.1 10^3/ul (0-0.2); ABS Eosinophils 0.2 10^3/ul (0-0.6); ABS Lymphocytes 2.2 10^3/ul (1.0-4.8); ABS Monocytes 0.6 10^3/ul (0-0.8); ABS Neutrophils 3.2 10^3/ul (1.5-7.7); Eosinophil % 2.5 %; Hematocrit 37 % (42-52); Hemoglobin 12.9 g/dL (14.0-18.0); Lymphocyte % 35.3 %; Mean Corpuscular HGB Conc 35 g/dL (31-36); Mean Corpuscular Hemoglobin 31 pg (27-31); Mean Corpuscular Volume 89 fL (80-94); Mean Platelet Volume 8.2 fL (7.4-10.4); Nucleated Red Blood Cells % 0.2; Platelet Count 396 10^3/uL (150-450); Red Blood Count 4.18 10^6 /uL (4.18-5.48); Red Cell Distribution Width 13 % (10-15); White Blood Count 6.3 10^3/uL (3.5-10.8)
[2019-08-08 13:41] LABS: TSH (Thyroid Stimulating Horm) 0.59 mcIU/mL (0.34-5.60)
[2019-08-08 18:09] LABS: Albumin 4.3 g/dL (3.2-5.2); Calcium 9.1 mg/dL (8.6-10.3); Potassium 4.1 mmol/L (3.5-5.0); Total Bilirubin 0.3 mg/dL (0.2-1.0)
[2019-08-08 18:15] LABS: Albumin/Globulin Ratio 1.9 (1-3); BUN/Creatinine Ratio 24.3 (8-20); EGFR African American 143.9 (>60); EGFR Non-African American 118.9 (>60); Globulin 2.3 g/dL (2-4); Total Protein 6.6 g/dL (6.4-8.9)
--- NOTE | 2019-08-09 08:14 | UC ---
- Progress Note Progress Note: Please call patient. CBC with slightly low hemoglobin and hematocrit. Low but normal TSH. Metabolic panel unremarkable. Recommend follow-up and repeat labs with PCP. Lyme serology pending. Course/Dx - Diagnoses Provider Diagnoses: Fatigue, Vague bodily discomfort Discharge ED - Sign-Out/Discharge Documenting (check all that apply): Post-Discharge Follow Up All imaging exams completed and their final reports reviewed: No Studies - Discharge Plan Condition: Stable Disposition: HOME Referrals: Alli Molina MD [Primary Care Provider] - As Soon As Possible Additional Instructions: As discussed, it is unclear what is causing your symptoms. You had blood drawn for baseline blood work and Lyme disease today. You will be notified if your Lyme testing is positive. It is important that you follow up with your primary care physician as soon as possible for further evaluation of your symptoms and blood work. - Billing Disposition and Condition Condition: STABLE Disposition: Home
--- NOTE | 2019-08-10 07:15 | UC ---
- Progress Note Progress Note: Pt with + lyme screen notes state pt with previous history of lyme await confirmatory testing prior to initiating treatment no doxy has been started at this time [email or web address] 08/10/19 Course/Dx - Diagnoses Provider Diagnoses: Fatigue, Vague bodily discomfort Discharge ED - Sign-Out/Discharge Documenting (check all that apply): Post-Discharge Follow Up All imaging exams completed and their final reports reviewed: No Studies - Discharge Plan Condition: Stable Disposition: HOME Referrals: Alli Molina MD [Primary Care Provider] - As Soon As Possible Additional Instructions: As discussed, it is unclear what is causing your symptoms. You had blood drawn for baseline blood work and Lyme disease today. You will be notified if your Lyme testing is positive. It is important that you follow up with your primary care physician as soon as possible for further evaluation of your symptoms and blood work. - Billing Disposition and Condition Condition: STABLE Disposition: Home
--- NOTE | 2019-08-13 15:53 | UC ---
- Progress Note Progress Note: Lyme titers were negative. The patient will be called by the nursing staff and advised to follow-up with his primary care provider for further evaluation. Course/Dx - Diagnoses Provider Diagnoses: Fatigue, Vague bodily discomfort Discharge ED - Sign-Out/Discharge Documenting (check all that apply): Post-Discharge Follow Up All imaging exams completed and their final reports reviewed: No Studies - Discharge Plan Condition: Stable Disposition: HOME Referrals: Alli Molina MD [Primary Care Provider] - As Soon As Possible Additional Instructions: As discussed, it is unclear what is causing your symptoms. You had blood drawn for baseline blood work and Lyme disease today. You will be notified if your Lyme testing is positive. It is important that you follow up with your primary care physician as soon as possible for further evaluation of your symptoms and blood work. - Billing Disposition and Condition Condition: STABLE Disposition: Home
== END 2019-08-07 17:42 | disposition home or self-care (01) ==
LOC: UCEAST 16:07
DX: R53.83 Other fatigue (principal); R42 Dizziness and giddiness; R11.0 Nausea; R68.83 Chills (without fever); F17.210 Nicotine dependence, cigarettes, uncomplicated
CPT/HCPCS: 36415; 80053; 84443; 85025; 86617; 86618; 99211; G0463

== ENCOUNTER 2019-12-23 11:01 | Emergency (ER) | payer OTHER ==
--- OUTSIDE RECORDS SUMMARY | 2019-12-23 11:08 | XMS REPORT | Continuity of Care Document ---
:1970 External Reference #:[id number] Author Name Alli Molina M.D. 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 After leaving [facility] residential facility in 2009 he did ok for a while, then started thinking he could "use safely", started using again but eventually got right back to where he was. He ended up seeking assistance again ~2yrs after leaving [facility] residential facility, part of a [employer] based work therapy program through [facility] [employer] in [place], a residential program for 6 months, then ~6mo after leaving there he started using again. He then sought care at [facility] of his own free will, started October 2014. No current legal issues. (He initially went to [facility] in 2009 b/o a parole violation). Allergies, Adverse Reactions, Alerts Description No Known Drug Allergies Medications Active Medications SIG Qnty Indications Ordering Provider Date Fluocinonide apply small 60ml H60.93 Alli Molina, 11/26/2019 0.05% amount to ear M.D. Solution canals up to 2x/day as needed; use sparingly; Amphetamine-Dextroamp take 1 capsule 30caps F90.0 Alli Molina, 2018 het ER by mouth every M.D. 20mg Caps ER morning for 24HR attention/concen tration; rx due 11/23/19 Nicotine Inhaler prn F17.210 Unknown 06/18/2018 Melatonin 1-2 by mouth Unknown 08/22/2016 10mg Capsules every night to help with sleep Suboxone 1 by mouth every 30units F11.20 Alli Molina, 11/05/2014 8-2mg Film morning; M.D. prescriber# [id number] History Medications PT For Low Back please evaluate and M54.5 Alli Molina, 07/24/2019 - Pain treat, modalities as M.D. 09/24/2019 needed, instruct in hep Immunizations CPT Code Status Date Vaccine Lot # [id number] Given 07/24/2019 Influenza Virus Vaccine, Quadrivalent, Split, [id number] Preservative Free 19752 Given 06/19/2018 Influenza Virus Vaccine, Quadrivalent, Split, [id number] Preservative Free 14504 Given 06/16/2017 Influenza Virus Vaccine, Quadrivalent, Split, [id number] Preservative Free 25657 Given 08/31/2015 Influenza Virus Vaccine, Quadrivalent, Split, [id number] Preservative Free Vital Signs Date Vital Result Comment 11/26/2019 4:56pm BP Systolic 130 mmHg BP Diastolic 80 mmHg Height 71 inches 5'11" Weight 158.00 lb BMI (Body Mass Index) 22.0 kg/m2 09/25/2019 3:47pm BP Systolic 144 mmHg BP Diastolic 76 mmHg Weight 163.00 lb Results Test Acquired Date Facility Test Result H/L Range Note CBC Auto 11/25/2019 [facility] White Blood 7.2 10^3/uL Normal 3.5- 10.8 Diff [phone] Count Red Blood Count 4.13 10^6/uL Low 4.18-5.48 Hemoglobin 13.0 g/dL Low 14.0-18.0 Hematocrit 37 % Low 42-52 Mean Corpuscular Volume 90 fL Normal 80-94 Mean Corpuscular Hemoglobin 31 pg Normal 27-31 Mean Corpuscular HGB Conc 35 g/dL Normal 31-36 Red Cell Distribution Width 13 % Normal 10-15 Platelet Count 397 10^3/uL Normal 150-450 Mean Platelet Volume 7.5 fL Normal 7.4-10.4 Abs Neutrophils 4.6 10^3/uL Normal 1.5-7.7 Abs Lymphocytes 1.9 10^3/uL Normal 1.0-4.8 Abs Monocytes 0.5 10^3/uL Normal 0-0.8 Abs Eosinophils 0.0 10^3/uL Normal 0-0.6 Abs Basophils 0.1 10^3/uL Normal 0-0.2 Abs Nucleated RBC 0.0 10^3/uL Granulocyte % 64.3 % Lymphocyte % 26.7 % Monocyte % 7.1 % Eosinophil % 0.5 % Basophil % 1.4 % Nucleated Red Blood Cells % 0.1 Laboratory test 11/25/2019 [facility] Ferritin 166.9 ng/mL Normal 24- 336 finding [phone] Iron & Iron Binding 11/25/2019 [facility] Iron 98 g/dL Normal 50- 212 Capacity [phone] Unsaturated Iron Binding < 342 g/dL Total Iron Binding Capacity 357 g/dL Normal 250-450 Transferrin 255 mg/dL Normal 203-362 % Iron Saturation 27 % Normal 15-55 Laboratory test 11/25/2019 [facility] Folic Acid > 20.00 ng/mL > 3.99 finding [phone] (Folate) Vitamin B12 453 pg/mL Normal 180-914 1 CBC Auto Diff 08/07/2019 [facility] White Blood 6.3 10^3/uL Normal 3.5-10.8 [phone] Count Red Blood Count 4.18 10^6/uL Normal 4.18-5.48 Hemoglobin 12.9 g/dL Low 14.0-18.0 Hematocrit 37 % Low 42-52 Mean Corpuscular Volume 89 fL Normal 80-94 Mean Corpuscular Hemoglobin 31 pg Normal 27-31 Mean Corpuscular HGB Conc 35 g/dL Normal 31-36 Red Cell Distribution Width 13 % Normal 10-15 Platelet Count 396 10^3/uL Normal 150-450 Mean Platelet Volume 8.2 fL Normal 7.4-10.4 Abs Neutrophils 3.2 10^3/uL Normal 1.5-7.7 Abs Lymphocytes 2.2 10^3/uL Normal 1.0-4.8 Abs Monocytes 0.6 10^3/uL Normal 0-0.8 Abs Eosinophils 0.2 10^3/uL Normal 0-0.6 Abs Basophils 0.1 10^3/uL Normal 0-0.2 Abs Nucleated RBC 0.0 10^3/uL Granulocyte % 50.4 % Lymphocyte % 35.3 % Monocyte % 9.6 % Eosinophil % 2.5 % Basophil % 2.2 % Nucleated Red Blood Cells % 0.2 Laboratory test 08/07/2019 [facility] TSH (Thyroid 0.59 mcIU/mL Normal 0.34-5.60 finding [phone] Stim Horm) Comp Metabolic 08/07/2019 [facility] Sodium 138 mmol/L Normal 135- 145 Panel [phone] Potassium 4.1 mmol/L Normal 3.5-5.0 Chloride 106 mmol/L Normal 101-111 Co2 Carbon Dioxide 25 mmol/L Normal 22-32 Anion Gap 7 mmol/L Normal 2-11 Calcium 9.1 mg/dL Normal 8.6-10.3 Albumin 4.3 g/dL Normal 3.2-5.2 Total Bilirubin 0.30 mg/dL Normal 0.2-1.0 Glucose 93 mg/dL Normal 70-100 Blood Urea Nitrogen 17 mg/dL Normal 6-24 Creatinine 0.70 mg/dL Normal 0.67-1.17 BUN/Creatinine Ratio 24.3 High 8-20 Total Protein 6.6 g/dL Normal 6.4-8.9 Globulin 2.3 g/dL Normal 2-4 Albumin/Globulin Ratio 1.9 Normal 1-3 Alkaline Phosphatase 59 U/L Normal 34-104 Alt 22 U/L Normal 7-52 Ast 26 U/L Normal 13-39 Egfr Non- 118.9 >60 Egfr 143.9 >60 2 Laboratory test 08/07/2019 [facility] Lyme Screen W/ Positive Abnormal Negative 3 finding [phone] Reflex To WB Lyme Disease AB 08/07/2019 [facility] IgG Immunoblot Negative Negative Immunoblot WB [phone] IgG detected against p23 kDa IgM Immunoblot Negative Negative IgM detected against None kDa Lyme Disease Interpretation See Comment 4 Laboratory test finding 07/24/2019 In House Occult Blood, F I T negative 1 Normal Range 180 to 914 Indeterminate Range 145 to 180 Deficient Range <145 2 Because ethnic data is not always readily available, this report includes an eGFR for both -Americans and non- Americans. The National Kidney Disease Education Program (NKDEP) does not endorse the use of the MDRD equation for patients that are not between the ages of 18 and 70, are , have extremes of body size, muscle mass, or nutritional status, or are non- or non-. According to the National Kidney Foundation, irrespective of diagnosis, the stage of the disease is based on the level of kidney function: Stage Description GFR(mL/min/1.73 m(2)) 1 Kidney damage with normal or decreased GFR 90 2 Kidney damage with mild decrease in GFR 60-89 3 Moderate decrease in GFR 30-59 4 Severe decrease in GFR 15-29 5 Kidney failure <15 (or dialysis) 3 Sent to reference laboratory for confirmatory testing. 4 Specific serologic response to B. burgdorferi infection is not detected, but cannot rule out early infection during which low or undetectable antibody levels to B. burgdorferi may be present. If clinically indicated, a new serum specimen should be submitted in 7-14 days. ADDITIONAL INFORMATION Per CDC criteria, the Lyme IgG Immunoblot is interpreted as positive if IgG-class antibodies are detected to >=5 B. burgdorferi proteins, and the Lyme IgM Immunoblot is interpreted as positive if IgM-class antibodies are detected to >=2 B. burgdorferi proteins. Immunoblot patterns not meeting these criteria should not be interpreted as positive. Epitopes from certain B. burgdorferi proteins (e.g., p41) are conserved across other bacteria, which may lead to the detection of IgM- and/or IgG-class antibodies on the Lyme disease immunoblots in patients without Lyme disease. Immunoblot should only be ordered on specimens that are positive or equivocal by a FDA-licensed Lyme disease antibody screening test (e.g., EIA). Results of the Lyme IgM immunoblot should not be considered in patients with >= 30 days of symptoms. Test Performed by: [facility] [address] [place] [address] Mail Rider: Dante Minor M.D. Ph.D.; CLIA# [id number] Procedures Description No Information Available Medical Devices Description No Information Available Encounters Type Date Location Provider Dx Diagnosis Office Visit 11/26/2019 Main Office Alli Molina F11.20 Opioid dependence, 4:30p M.DPatience uncomplicated F90.0 Attn-defct hyperactivity disorder, predom inattentive type D64.9 Anemia, unspecified H60.93 Unspecified otitis externa, bilateral Z68.22 Body mass index (BMI) 22.0-22.9, adult Office Visit 09/25/2019 3:45p Main Office Becky Molina1.20 Opioid Alli bowden M.D. uncomplicated F90.0 Attn-defct hyperactivity disorder, predom inattentive type M54.5 Low back pain F17.210 Nicotine dependence, cigarettes, uncomplicated D64.9 Anemia, unspecified Office Visit 07/24/2019 4:15p Main Office Jesse F11.20 Opioid dependenceAlli M.D. uncomplicated F90.0 Attn-defct hyperactivity disorder, predom inattentive type R45.4 Irritability and anger Z12.11 Encounter for screening for malignant neoplasm of colon M54.5 Low back pain D17.1 Benign lipomatous neoplasm of skin, subcu of trunk Z23 Encounter for immunization Assessments Date Code Description Provider 11/26/2019 F11.20 Opioid dependence, uncomplicated Alli Molina M.D. 11/26/2019 F90.0 Attention-deficit hyperactivity disorder, Alli Molina M.D. predominantly inat 11/26/2019 D64.9 Anemia, unspecified Alli Molina M.D. 11/26/2019 H60.93 Unspecified otitis externa, bilateral Alli Molina M.D. 11/26/2019 Z68.22 Body mass index (BMI) 22.0-22.9, adult Alli Molina M.D. 09/25/2019 F11.20 Opioid dependence, uncomplicated Alli Molina M.D. 09/25/2019 F90.0 Attention-deficit hyperactivity disorder, Alli Molina M.D. predominantly inat 09/25/2019 M54.5 Low back pain Alli Molina M.D. 09/25/2019 F17.210 Nicotine dependence, cigarettes, Alli Molina M.D. uncomplicated 09/25/2019 D64.9 Anemia, unspecified Alli Molina M.D. 07/24/2019 F11.20 Opioid dependence, uncomplicated Alli Molina M.D. 07/24/2019 F90.0 Attention-deficit hyperactivity disorder, Alli Molina M.D. predominantly inat 07/24/2019 R45.4 Irritability and anger Alli Molina M.D. 07/24/2019 Z12.11 Encounter for screening for malignant Alli Molina M.D. neoplasm of colon 07/24/2019 M54.5 Low back pain Alli Molina M.D. 07/24/2019 D17.1 Benign lipomatous neoplasm of skin and Alli Molina M.D. subcutaneous tissue of trunk 07/24/2019 Z23 Encounter for immunization Alli Molina M.D. Plan of Treatment Future Appointment(s):01/31/2020 4:45 pm - Alli Molina M.D. at Main [id number]/26/2019 - Alli Molina M.D.F11.20 Opioid dependence, uncomplicatedFollow up:RTO 2 nlzrnnY19.0 Attention-deficit hyperactivity disorder, predominantly inatComments:Sxs well controlled w/ current medication. Continue current Tx.D64.9 Anemia, unspecifiedComments:mild, stable, mqawnrrbnaG29.93 Unspecified otitis externa, bilateralNew Medication: Fluocinonide 0.05 % - apply small amount to ear canals up to 2x/day as needed; use sparingly;Comments:Likely seborrhea involving ears. He gets good control w/ infrequent use of fluocinonide solution wc he will continue to use prn. Discussed that if needing it much more often we should consider alternatives, discussed risk of tachyphylaxis, skin thinning w/ ongoing regular use.Z68.22 Body mass index (BMI) 22.0-22.9, adult Functional Status Description No Information Available Mental Status Description No Information Available Referrals Description No Information Available
[2019-12-23 11:11] VITALS: BP 165/87
[2019-12-23] MEDS ORDERED: Lidocaine 1% MPF* 2 ML VIAL INJ ONE (11:51)
--- NOTE | 2019-12-23 11:55 | UC ---
FLU HPI - History of Current Complaint Chief Complaint: UCLaceration Stated Complaint: LIP LAC Time Seen by Provider: 12/23/19 11:46 Pain Intensity: 8 - Allergy/Home Medications Allergies/Adverse Reactions: Allergies Allergy/AdvReac Type Severity Reaction Status Date / Time No Known Allergies Allergy Verified 12/23/19 11:11 Home Medications: Home Medications Buprenorp/Nalox 8-2 MG SL TAB [Suboxone 8-2 mg SL TAB*] 8 mg SL QAM 07/17/15 [ History Confirmed 12/23/19] Dextroamphetamine/Amphetamine [Adderall Xr 20 mg Capsule] 20 mg PO DAILY [History Confirmed 12/23/19] Ibuprofen TAB* [Motrin TAB* 400 MG] 400 mg PO Q6H PRN 12/23/19 [History Confirmed 12/23/19] PMH/Surg Hx/FS Hx/Imm Hx - Surgical History Surgical History: Yes Surgery Procedure, Year, and Place: R carpel tunnel - Family History Known Family History: Negative: Hypertension, Blood Disorder - Social History Alcohol Use: None Substance Use Type: None Substance Use Comment - Amount & Last Used: ON SUBOXONE for opiate abuse Smoking Status (MU): Light Every Day Tobacco Smoker Type: Cigarettes Amount Used/How Often: 5-6 cig/day Length of Time of Smoking/Using Tobacco: since age 16 Have You Smoked in the Last Year: Yes When Did the Patient Quit Smoking/Using Tobacco: 3RD WEEK SEP 2015 Household Exposure Type: Cigarettes Physical Exam Vital Signs: Initial Vital Signs Temp 98.5 F 12/23/19 11:08 Pulse 90 12/23/19 11:08 Resp 16 12/23/19 11:08 BP 165/87 12/23/19 11:08 Pulse Ox 99 12/23/19 11:08 Discharge ED - Discharge Plan Referrals: Alli Molina MD [Primary Care Provider] -
--- NOTE | 2019-12-23 13:05 | UC ---
Laceration HPI - HPI Summary HPI Summary: Pt presents with c/o laceration to right upper lip that happened at home when a spray paint can hit him in the face. Pt states he is UTD with his tetanus. - History Of Current Complaint Chief Complaint: UCLaceration Stated Complaint: LIP LAC Time Seen by Provider: 12/23/19 11:46 Hx Obtained From: Patient Laceration Location: Face Mechanism Of Injury: Blunt Trauma Onset/Duration: Sudden Onset Severity: Moderate Pain Intensity: 6 Pain Scale Used: 0-10 Numeric Aggravating Factors: Movement - Allergies/Home Medications Allergies/Adverse Reactions: Allergies Allergy/AdvReac Type Severity Reaction Status Date / Time No Known Allergies Allergy Verified 12/23/19 11:11 Home Medications: Home Medications Buprenorp/Nalox 8-2 MG SL TAB [Suboxone 8-2 mg SL TAB*] 8 mg SL QAM 07/17/15 [ History Confirmed 12/23/19] Dextroamphetamine/Amphetamine [Adderall Xr 20 mg Capsule] 20 mg PO DAILY [History Confirmed 12/23/19] Ibuprofen TAB* [Motrin TAB* 400 MG] 400 mg PO Q6H PRN 12/23/19 [History Confirmed 12/23/19] PMH/Surg Hx/FS Hx/Imm Hx Previously Healthy: Yes - Surgical History Surgical History: Yes Surgery Procedure, Year, and Place: R carpel tunnel - Family History Known Family History: Negative: Hypertension, Blood Disorder - Social History Occupation: Employed Full-time Lives: With Family Alcohol Use: None Substance Use Type: None Substance Use Comment - Amount & Last Used: ON SUBOXONE for opiate abuse Smoking Status (MU): Light Every Day Tobacco Smoker Type: Cigarettes Amount Used/How Often: 5-6 cig/day Length of Time of Smoking/Using Tobacco: since age 16 Have You Smoked in the Last Year: Yes When Did the Patient Quit Smoking/Using Tobacco: 3RD WEEK SEP 2015 Household Exposure Type: Cigarettes - Immunization History Vaccination Up to Date: Yes Review of Systems All Other Systems Reviewed And Are Negative: Yes Constitutional: Positive: Negative Skin: Positive: Other - laceration to right upper lip Eyes: Positive: Negative ENT: Positive: Other - right upper front tooth tender and pt is concerned that it is loose. Respiratory: Positive: Negative Cardiovascular: Positive: Negative Gastrointestinal: Positive: Negative Genitourinary: Positive: Negative Motor: Positive: Negative Neurovascular: Positive: Negative Musculoskeletal: Positive: Negative Neurological/Mental Status: Positive: Negative Psychological: Positive: Negative Is Patient Immunocompromised?: No Physical Exam Appearance: Pain Distress Vital Signs: Initial Vital Signs Temp 98.5 F 12/23/19 11:08 Pulse 90 12/23/19 11:08 Resp 16 12/23/19 11:08 BP 165/87 12/23/19 11:08 Pulse Ox 99 12/23/19 11:08 Vital Signs Reviewed: Yes Eye Exam: Normal ENT Exam: Normal Dental Exam: Normal Neck exam: Normal Respiratory Exam: Normal Cardiovascular Exam: Normal Musculoskeletal Exam: Normal Neurological Exam: Normal Psychological Exam: Normal Skin Exam: Other - laceration to right upper lip Laceration Repair - Laceration Repair 1 Description: Linear Laceration Size After Repair: Length (cm) - 1, Width (mm) - 4, Depth (mm) - 4 Modified For Repair: No Anesthesia Used: 1.0% Lido Cleansing Completed Via Routine Prep: Yes Irrigation With Pressure Irrigation Device: Yes Closure Material: Skin Adhesive Closure Method: Single Layer Suture Of: Skin Suture Type: Prolene - [address] with 5-0 prolene Laceration Course/Dx - Differential Dx - Laceration/Wound Differental Diagnoses: Laceration, Other - dental injury - Diagnosis Provider Diagnosis: Laceration of lip Discharge ED - Sign-Out/Discharge Documenting (check all that apply): Patient Departure All imaging exams completed and their final reports reviewed: No Studies - Discharge Plan Condition: Stable Disposition: HOME Patient Education Materials: Care For Your Stitches (ED), Facial Laceration (ED ) Referrals: Alli Molina MD [Primary Care Provider] - If Needed Additional Instructions: Please keep your sutures clean until they are removed in 5-6 days. You may return to Urgent Care to have them removed or you can have them removed at your PCP office. - Billing Disposition and Condition Condition: STABLE Disposition: Home - Attestation Statements Provider Attestation: This patient was not seen by me. I was available for consult. Chart reviewed. NINFA
== END 2019-12-23 12:49 | disposition home or self-care (01) ==
LOC: UCCORT 11:01
DX: S01.511A Laceration without foreign body of lip, initial encounter (principal); W22.8XXA Striking against or struck by other objects, initial encounter; Y92.009 Unspecified place in unspecified non-institutional (private) residence as the place of occurrence of the external cause; F17.210 Nicotine dependence, cigarettes, uncomplicated
CPT/HCPCS: 12011; 99211; G0463